=== PATIENT | female | born 1990 | race Hispanic/Latino ===

== ENCOUNTER 2017-06-23 04:10 | Day surgery (SDC) | payer OTHER ==
[2017-06-23 04:43] VITALS: BMI 23.6
[2017-06-23] MEDS ORDERED: Ondansetron ODT 4 MG TAB PO PRN (05:11)
[2017-06-23] MEDS ORDERED: Ondansetron HCl/PF 4 MG/2 ML Vial ONE (05:13)
[2017-06-23] MEDS ORDERED: Lactated Ringer's 1,000 ML IV SCH ×2 (05:15→05:30)
== END 2017-06-23 06:27 | disposition home or self-care (01) ==
LOC: L&D/OP 04:10
PROVIDERS: ATTEND Obstetrics & Gynecology
DX: O21.8 Other vomiting complicating pregnancy (principal); A08.4 Viral intestinal infection, unspecified; Z79.899 Other long term (current) drug therapy; Z3A.24 24 weeks gestation of pregnancy
CPT/HCPCS: 96360; 96361; 96375; J2405

== ENCOUNTER 2017-10-19 21:00 | Inpatient (IN) | payer MEDICAID, OTHER, SELFPAY ==
[2017-10-19 22:08] VITALS: BMI 26.4
[2017-10-19] MEDS ORDERED: Lidocaine 1% (PF) 30 ML VIAL SC PRN (22:54)
[2017-10-19] MEDS ORDERED: Promethazine HCl 25 MG/ML VIAL IM PRN (22:54)
[2017-10-19] MEDS ORDERED: Ondansetron HCl/PF 4 MG/2 ML Vial IVP PRN (22:54)
[2017-10-19] MEDS ORDERED: LR / Pitocin 40 units/1000 ml 1,000 ML IV PRN (22:54)
[2017-10-19] MEDS ORDERED: Ibuprofen 800 MG TAB PO PRN (22:54)
[2017-10-19 23:16] LABS: Hemoglobin 15.7 g/dL (12.0-16.0); Mean Corpuscular HGB CONC 33.4 g/dL (32.0-36.0); Mean Corpuscular Hemoglobin 28.8 pg (27.0-31.0); Mean Corpuscular Volume 86.3 fl (81.0-99.0); Mean Platelet Volume 8.8 fL (7.4-10.4); Platelet Count 260 thou/uL (130-400); Red Blood Cell (RBC) Count 5.46 mill/uL (4.20-5.40); White Blood Cell (WBC) Count 12.6 thou/uL (4.8-10.8)
--- NOTE | 2017-10-19 23:45 | PDOC.LDHP ---
Labor and Delivery H&P Chief complaint: scheduled induction (Elective) HPI: 27 year old @ 39.6 wks based on 2T U/S presents for elective induction of labor. LGA infant in last with 4th degree laceration. Size > date in current with concerns for 4th degree laceration. growth scan at 34 wks showed EFW of 2658 g (57%). No complications in current . Patient denies vaginal bleeding, vaginal discharge, or LOF. She endorses movement. Current gestational age (weeks): 39 (39.6) Due date: 10/20/17 Dating criteria: second trimester ultrasound Grav: 2 Para: 1 Current complications: none Current medications: pre-magalis vitamins Previous surgical history: none Allergies/Adverse Reactions: Allergies Allergy/AdvReac Type Severity Reaction Status Date / Time No Known Allergies Allergy Verified 06/23/17 04:40 Social history: none - Physical Exam Vital signs reviewed and normal: yes General: NAD, resting Heart: RRR Lungs: CTAB Abdomen: gravid Extremeties: no edema FHT: category 1, early decelerations (x1), variability present [place] contractions every: q6-8 minutes - Vaginal Exam cm dilated: 3 (@23:50 by Cordell) Effacement: 50% Station: -2 - OB Labs Blood type: B RH: positive Antibody Screen: negative HIV: negative RPR: negative HEPSAg: negative 1 hour GCT: negative GBS: negative Urine drug screen: negative Rubella: immune - Assessment L&D Assessment: elective induction at term - Plan Plan: admit to L&D -: Elective induction of labor: - Size > dates per [facility] records - Prior LGA infant with 4th degree laceration - growth scan at 34 weeks showed EFW of 2658 g (57%) - Cervical check 22:11 3/50/-2 posterior and thick - Norton score of 6 - Osmar q6-8 minutes - Will start cytotec; first cytotec placed at 23:50 - Q4H cervical checks - Last cervical check at 23:50 was unchanged from prior exam TIUP - See above plan
[2017-10-19] MEDS: Misoprostol 100 MCG TAB VAG SCH (23:47)
[2017-10-19] MEDS: Lactated Ringer's 1,000 ML IV SCH (23:47)
[2017-10-19 23:51] LABS: HBSAg Index 0.14 S/CO (0-0.99); Hep B Surf Ag Non-Reactive S/CO (NonReactive); Syphilis Antibody Nonreactive (Nonreactive); Syphilis Antibody Index 0.06 S/CO (<1.00 Non-Reactive)
--- NOTE | 2017-10-20 03:53 | PDOC.LDPN ---
Labor & Delivery Progress Note - Subjective Subjective: comfortable - Objective Vital signs reviewed and normal: yes General: NAD, resting Uterine fundus: non tender SVE: at 03:40 by Cordell Dilation: 3 Effacement: 50% Station: -2 FHT: category 1, early decelerations, variability present [place] contractions every: q2-3 minutes - Assessment (1) Elective induction of labor planned Code(s): [id number] - Current Visit: Yes Status: Acute Comment: 27 year old at 40.0 wks via 2T u/s presents for elective induction of labor - History of LGA with 4th degree laceration - EFW at 34 wks: 2658 g (57%) - Cytotec placed at 23:40; tachysystole, so will not place cytotec at this time. If break in contractions, then can consider placing cytotec - No change in dilation since last cervical check. Cervix softer, but otherwise unchanged - Recheck in 4 hours - Pain control with epidural at patient request - GBS negative - Consider placement of IUPC and augmentation with pitocin once cervix favorable - Norton score 6 Plan: continue plan of care
[2017-10-20] MEDS: Misoprostol 100 MCG TAB VAG SCH ×5 (04:42→17:00)
[2017-10-20] MEDS: Lactated Ringer's 1,000 ML IV SCH ×3 (04:58→13:17)
[2017-10-20] MEDS ORDERED: DISCONTINUE ALL PREVIOUS NARCOTICS FS SCH (07:15)
[2017-10-20] MEDS: Bupivacaine 0.5% 20 ML, Fentanyl 400 MCG in Sodium Chloride 0.9% 72 ML EPIDURAL SCH ×2 (07:42→18:29)
[2017-10-20] MEDS ORDERED: ePHEDrine/0.9% NaCl/PF SYRINGE 50 mg/10 ml SLOW IVP PRN (07:43)
[2017-10-20] MEDS ORDERED: Naloxone HCl 0.4 mg/ml Vial IVP PRN (07:43)
[2017-10-20] MEDS ORDERED: Lactated Ringer's 500 ML IV PRN (07:43)
[2017-10-20] MEDS ORDERED: Eucerin (Mineral Oil/Petrolatum,White) 30 gm Jar TOP PRN (07:43)
[2017-10-20] MEDS ORDERED: Communication Order-Pharmacy FS SCH (07:45)
[2017-10-20] MEDS ORDERED: Fentanyl 4mcg/Marcaine 0.1% Cassette 100 ML EPIDURAL SCH (07:45)
--- NOTE | 2017-10-20 08:57 | PDOC.LDPN ---
Labor & Delivery Progress Note - Subjective Subjective: comfortable, no concerns, other (27 yo @ 40.1 presents for elective induction) - Objective Vital signs reviewed and normal: yes General: NAD, resting Uterine fundus: non tender Dilation: 4 Effacement: 90% Station: -1 FHT: category 1 [place] contractions every: 2-3 minutes - Assessment (1) Elective induction of labor planned Code(s): [id number] - Current Visit: Yes Status: Acute Comment: 27 year old at 40.1 wks via 2T u/s presents for elective induction of labor - History of LGA infant with 4th degree laceration - EFW at 34 wks: 2658 g (57%) - Cytotec placed at 23:40 and 0445 - labor check at 0730: 4/80/-1; Norton of 9 - we will start pitocin - epidural placed - GBS negative - Continue labor checks q2h <Sejal Cobb - Last Filed: 10/20/17 10:35> Attending Addendum - Attending Addendum Date/Time: 10/20/17 1139 I personally evaluated the patient and discussed the management with Dr. Carranza and team. I agree with the History, Examination, Assessment and Plan documented above with any addition or exceptions noted below. <London Cali - Last Filed: 10/20/17 11:39>
[2017-10-20] MEDS ORDERED: Non-Formulary Item 1 EACH (Pnv No.95/Ferrous Fum/Folic Ac [Prenatal Tablet] 1 TABLET) PO SCH (09:00)
[2017-10-20] MEDS ORDERED: Prenatal Vitamin 1 TAB PO SCH (09:00)
[2017-10-20] MEDS ORDERED: LR 500 ML/Oxytocin 10 units 500 ML ONE (09:36)
--- NOTE | 2017-10-20 11:24 | PDOC.LDPN ---
Labor & Delivery Progress Note - Subjective Subjective: comfortable (27 year old at 40.1 wks via 2T u/s presents for elective induction of labor) - Objective Vital signs reviewed and normal: yes General: NAD, resting Dilation: 5 Effacement: 90% Station: -1 FHT: category 1 [place] contractions every: 1-2 minutes IUPC placed: yes - Assessment (1) Elective induction of labor planned Code(s): [id number] - Current Visit: Yes Status: Acute Comment: 27 year old at 40.1 wks via 2T u/s presents for elective induction of labor - History of LGA with 4th degree laceration - EFW at 34 wks: 2658 g (57%) - Cytotec placed at 23:40 and 0445 - labor check at 1123: 5/80/-1; Continue pitocin - epidural placed - GBS negative - Continue labor checks q2h Plan: continue plan of care, pitocin for augmentation <Sejal Cobb - Last Filed: 10/20/17 11:23> Attending Addendum - Attending Addendum Date/Time: 10/20/17 1140 I personally evaluated the patient and discussed the management with Dr. Carranza and team. I agree with the History, Examination, Assessment and Plan documented above with any addition or exceptions noted below. <London Cali - Last Filed: 10/20/17 11:40>
--- NOTE | 2017-10-20 15:47 | PDOC.LDPN ---
Labor & Delivery Progress Note - Subjective Subjective: comfortable (27 year old at 40.1 wks via 2T u/s presents for elective induction of labor) - Objective Vital signs reviewed and normal: yes General: NAD, resting Dilation: 6.5 Effacement: 100% Station: 0 FHT: category 1 [place] contractions every: 3 minutes IUPC placed: yes - Assessment (1) Elective induction of labor planned Code(s): [id number] - Current Visit: Yes Status: Acute Comment: 27 year old at 40.1 wks via 2T u/s presents for elective induction of labor - History of LGA with 4th degree laceration - EFW at 34 wks: 2658 g (57%) - Cytotec placed at 23:40 and 0445 - labor check at 1400: 6.5/100/0; Continue pitocin - epidural placed - GBS negative - Continue labor checks q2h <Sejal Cobb - Last Filed: 10/20/17 15:47> Attending Addendum - Attending Addendum Date/Time: 10/20/17 2085 I personally evaluated the patient and discussed the management with Dr. Carranza. I agree with the History, Examination, Assessment and Plan documented above with any addition or exceptions noted below. Continue augmentation. Anticipate . <London Cali - Last Filed: 10/20/17 17:48>
--- NOTE | 2017-10-20 19:30 | PDOC.OPDEL ---
OB Operative/Delivery Note Delivery Dr/Surgeon: Cordell Assist: Pope Gutierrez Pre-Delivery Diagnosis: elective induction Weeks gestation: 40 Anesthesia: epidural - Findings A Sex: female Weight: 3.577 kg - 1 min: 8 - 5 min: 9 - Additional Findings/Plan Placenta delivered: spontaneous Repaired Obstetrical Laceration: 2nd degree (perineal) Estimated blood loss: 250 mL Compilations/Other Findings: Delivering Physician: Violet Landa DO Attending: Jerel Gold MD Procedure: Spontaneous Vaginal Delivery Anesthesia: epidural EBL: 250 ml Pre-op Diagnosis: 1. Term intrauterine 2. Elective induction of labor 3. Hx of LGA , Hx of 4th degree perineal laceration 4. Size > dates Post-op Diagnosis: 1. Term intrauterine , delivered 2. same as above 3. Second degree perineal laceration s/p repair Indications: A 27 y/o female presents to L&D for elective induction of labor Delivery Note: This is 27 yo F @ 40.0 wks who delivered a viable F at 18:58 on 10/20/2017. Following an uneventful antepartum course, a vigorous female was delivered over an intact perineum in the occipitoanterior position. Anterior Shoulder and then remainder of the body delivered. No nuchal cord. The head was held down and mouth and nares were bulb suctioned. Cord clamped and cut and cord blood collected. Placenta delivered intact with a 3 vessel cord noted. Fundal massage was performed and the fundus was firm. The cervix and vagina were inspected. Laceration noted and repaired with 2-0 vicryl on SH in the usual fashion with good approximation and hemostasis. went to nursery in good condition for routine care. Apgars were 8/9at 1 & 5 minutes, respectively. Patient tolerated delivery well and went to after routine recovery/care. Post delivery plan: routine recovery
[2017-10-20] MEDS: Acetaminophen 325 MG TAB PO PRN (19:39)
[2017-10-20] MEDS ORDERED: LR / Pitocin 40 units/1000 ml 1,000 ML IV SCH (22:14)
[2017-10-20] MEDS ORDERED: Bisacodyl 10 MG SUPP PR PRN (22:14)
[2017-10-20] MEDS ORDERED: Milk Of Magnesia 30 ML UDCUP PO PRN (22:14)
[2017-10-20] MEDS ORDERED: Benzocaine/Menthol 20-0.5% 60 ML CAN TOP PRN (22:14)
[2017-10-20] MEDS ORDERED: Ibuprofen 800 MG TAB PO SCH (22:30)
[2017-10-21] MEDS: Acetaminophen 325 MG TAB PO PRN (02:01)
[2017-10-21] MEDS: Ibuprofen 800 MG TAB PO SCH ×3 (06:33→21:34)
[2017-10-21] MEDS: Ferrous Sulfate 325 MG TAB PO SCH ×2 (08:31→18:12)
[2017-10-21] MEDS: Prenatal Vitamin 1 TAB PO SCH (08:31)
[2017-10-21] MEDS ORDERED: Adacel (T-DAP) 0.5 ML VIAL IM ONE (09:00)
[2017-10-21] MEDS ORDERED: Docusate Calcium (SURFAK) 240 MG CAP PO SCH (09:00)
--- NOTE | 2017-10-21 09:35 | PDOC.PP ---
Post Progress Note Post Day #: 1 Subjective: Doing well, normal lochia, able to walk but has stiffness still in R leg. otherwise no complaints. PO intake tolerated: yes Flatus: yes Ambulation: yes Vital Signs (12 hours) Temp Pulse Resp BP BP 10/21/17 07:57 98.9 F 48 L 18 135/74 10/21/17 04:45 97.9 F 52 L 20 10/21/17 00:30 98.9 F 65 20 120/70 10/20/17 22:40 98.8 F 60 20 102/57 L 10/20/17 21:45 98.4 F 60 18 124/60 Weight Weight 61.235 kg - Physical Examination General: NAD Cardiovascular: no m/r/g, RRR Respiratory: clear to auscultation bilaterally, non-labored breathing Abdominal: + bowel sounds, lochia, no distention Fundus firm & at: umbilicus Extremities: negative homans (B) Skin: CS incision dry & intact Neurological: no gross focal deficits Psychiatric: A&Ox3, normal affect Result Diagrams: 10/19/17 22:03 Additional Labs: Post Labs Hep Bs Antigen Non-Reactive S/CO (NonReactive) 10/19/17 22:03 (1) Vaginal delivery Status: Acute Comment: on 10/20 with 2nd degree laceration, repaired. minimal blood loss. (2) Bradycardia Code(s): R00.1 - BRADYCARDIA, UNSPECIFIED Status: Suspected Comment: Patient has had two recorded low HR while sleeping and asymptomatic. No records of previously Low HR. I will order EKG and increase frequency of pulse checks to confirm that she is having bradycardia. With her hx, a benign cause is more likely than something concerning but we will evaluate and monitor. (3) Elective induction of labor planned Code(s): [id number] - Status: Acute Comment: 27 year old at 40.1 wks via 2T u/s presents for elective induction of labor - History of LGA with 4th degree laceration Induction progressed uncomplicated to delivery. <Krystian Gutierrez - Last Filed: 10/21/17 09:32> Vital Signs (12 hours) Temp Pulse Resp BP 10/21/17 07:57 98.9 F 48 L 18 135/74 10/21/17 04:45 97.9 F 52 L 20 10/21/17 00:30 98.9 F 65 20 120/70 Weight Weight 61.235 kg Result Diagrams: 10/19/17 22:03 Additional Labs: Post Labs Hep Bs Antigen Non-Reactive S/CO (NonReactive) 10/19/17 22:03 <London Cali - Last Filed: 10/21/17 11:57> Attending Addendum - Attending Addendum Date/Time: 10/21/17 1156 I personally evaluated the patient and discussed the management with Dr. Carranza and team. I agree with and repeated the History, Examination, Assessment and Plan documented above with any addition or exceptions noted below. Pt doing well, asymptomatic. NO c/o leg pain to me. Denies cp/palps/sob. No carley during my exam. No obvious leg abnormality Routine care. If persistent leg pain will consider dopplers. If persistent carley will order ECG. <London Cali - Last Filed: 10/21/17 11:57>
[2017-10-22] MEDS: Acetaminophen 325 MG TAB PO PRN ×2 (02:25→07:56)
[2017-10-22] MEDS: Ibuprofen 800 MG TAB PO SCH (04:35)
[2017-10-22] MEDS: Prenatal Vitamin 1 TAB PO SCH (07:56)
[2017-10-22] MEDS: Ferrous Sulfate 325 MG TAB PO SCH (07:56)
[2017-10-22 08:02] VITALS: BP 117/64; TEMP 98.3
--- NOTE | 2017-10-22 10:58 | PDOC.PP ---
Post Progress Note Post Day #: 2 PO intake tolerated: yes Flatus: yes Ambulation: yes Vital Signs (12 hours) Temp Pulse Resp BP 10/22/17 08:01 98.3 F 72 20 117/64 10/22/17 07:55 98.3 F 72 20 Weight Weight 61.235 kg - Physical Examination General: NAD Cardiovascular: no m/r/g (bradycardia) Respiratory: clear to auscultation bilaterally, non-labored breathing Abdominal: + bowel sounds, lochia (minimal), appropriately TTP Fundus firm & at: at the umbilicus Neurological: no gross focal deficits Psychiatric: A&Ox3, normal affect Result Diagrams: 10/19/17 22:03 Additional Labs: Post Labs Hep Bs Antigen Non-Reactive S/CO (NonReactive) 10/19/17 22:03 (1) Elective induction of labor planned Code(s): [id number] - Status: Acute Comment: 27 year old at 40.1 wks via 2T u/s presents for elective induction of labor, now s/p . Stooling, ambulating, with mild pain endorsed, taking ibuprofen 800mg q6h prn. History of LGA infant with 4th degree laceration. 2nd degree laceration during this delivery, hemostatic. Pt endorses minimal bleeding. Okay to dc today. Pt does have bradycardia, which could be do to a vasovagal response s/p delivery. She also could chronically have asymptomatic bradycardia. Recommended follow-up in 4-[address] Gutierrez at Clinic. <Sejal Cobb - Last Filed: 10/22/17 10:55> Vital Signs (12 hours) Temp Pulse Resp BP 10/22/17 08:01 98.3 F 72 20 117/64 10/22/17 07:55 98.3 F 72 20 Weight Weight 61.235 kg Result Diagrams: 10/19/17 22:03 Additional Labs: Post Labs Hep Bs Antigen Non-Reactive S/CO (NonReactive) 10/19/17 22:03 <Haris Salazar - Last Filed: 10/22/17 17:40> Attending Addendum - Attending Addendum Date/Time: 10/22/17 2728 I personally evaluated the patient and discussed the management with Dr. Cobb. I agree with the History, Examination, Assessment and Plan documented above with any addition or exceptions noted below. <Haris Salazar - Last Filed: 10/22/17 17:40>
== END 2017-10-22 13:10 | disposition home or self-care (01) | DRG 774 ==
LOC: L&D 21:12 → 3SW 10-20 21:34
PROVIDERS: ADMIT Family Medicine; ATTEND Family Medicine
PROC: 10E0XZZ Delivery of Products of Conception, External Approach (ICD-10-PCS; principal; 2017-10-20)
PROC: 0KQM0ZZ Repair Perineum Muscle, Open Approach (ICD-10-PCS; 2017-10-20)
PROC: 3E0P7VZ Introduction of Hormone into Female Reproductive, Via Natural or Artificial Opening (ICD-10-PCS; 2017-10-20)
PROC: 10H07YZ Insertion of Other Device into Products of Conception, Via Natural or Artificial Opening (ICD-10-PCS; 2017-10-20)
DX: O70.1 Second degree perineal laceration during delivery (principal); Z37.0 Single live birth; O90.89 Other complications of the puerperium, not elsewhere classified; R00.1 Bradycardia, unspecified; Z3A.39 39 weeks gestation of pregnancy
CPT/HCPCS: 36416; 51702; 85027; 86780; 87340; 93005; 93010; J3010; J3490; J7050; J7120

== ENCOUNTER 2017-10-23 22:43 | Emergency (ER) | payer MEDICAID, SELFPAY ==
[2017-10-24 00:41] LABS: #Eosinphils 0.2 thou/uL (0.0-0.7); #Lymphocytes 2.2 thou/uL (1.20-3.40); #Monocytes 0.8 thou/uL (0.11-0.59); #Neutrophils 11.7 thou/uL (1.40-6.50); %Basophils 0.2 % (0.0-1.0); %Eosinophils 1.6 % (0.0-10.0); %Lymphocytes 14.4 % (21.0-51.0); %Monocytes 5.2 % (0.0-10.0); %Neutrophils 78.6 % (42.0-75.0); Hemoglobin 12.3 g/dL (12.0-16.0); Mean Corpuscular HGB CONC 33.7 g/dL (32.0-36.0); Mean Platelet Volume 7.3 fL (7.4-10.4); Platelet Count 241 thou/uL (130-400); RBC Distribution Width 13.9 % (11.5-14.5); Red Blood Cell (RBC) Count 4.25 mill/uL (4.20-5.40); White Blood Cell (WBC) Count 14.9 thou/uL (4.8-10.8)
[2017-10-24] MEDS ORDERED: Ketorolac Tromethamine 60 MG/2 ML VIAL ONE (01:01)
[2017-10-24 01:20] LABS: ALT (SGPT) 64 U/L (8-55); AST (SGOT) 63 U/L (5-34); Albumin 3.4 g/dL (3.5-5.0); Alkaline Phosphatase 134 U/L (40-150); Anion Gap 11 mmol/L (10-20); BUN (Urea Nitrogen) 14 mg/dL (7.0-18.7); Bilirubin, Total 0.2 mg/dL (0.2-1.2); Calc. Creatinine Clearance 0 mL/min (70-130); Calcium 9.1 mg/dL (7.8-10.44); Carbon Dioxide 27 mmol/L (22-29); Chloride 107 mmol/L (98-107); Estimated GFR-MDRD Greater than 90; Globulin 2.8 g/dL (2.4-3.5); Glucose 90 mg/dL (70-105); Potassium 3.8 mmol/L (3.5-5.1); Protein, Total 6.2 g/dL (6.0-8.3); Sodium 141 mmol/L (136-145)
== END 2017-10-24 01:07 | disposition home or self-care (01) ==
LOC: ERS 22:43
DX: O92.79 Other disorders of lactation (principal)
CPT/HCPCS: 36415; 80053; 85025; 96372; J1885